=== PATIENT | male | born 1975 | race African-American/Black ===

== ENCOUNTER 2017-09-02 18:57 | Emergency (ER) | payer OTHER ==
[2017-09-02] MEDS ORDERED: HYDROmorphONE/DILAUDID 2 MG/ML INJ IVP ONE (19:01)
[2017-09-02] MEDS ORDERED: NS 1,000 ML IV ONE (19:01)
[2017-09-02] MEDS ORDERED: METOCLOPRAMIDE 10 MG/2 ML VIAL IVP ONE (19:01)
[2017-09-02] MEDS ORDERED: IOPAMIDOL (ISOVUE 370) 100 ML BTL IV ONE (19:04)
--- NOTE | 2017-09-02 19:05 | EDPHY ---
H & P Time Seen by Provider: 09/02/17 19:01 HPI/ROS: CHIEF COMPLAINT: Severe headache HISTORY OF PRESENT ILLNESS: The patient is a 42-year-old man who comes to the emergency department complaining of a severe sudden onset headache and right- sided neck pain. He felt completely well this morning and was hiking with his family. 5 min into the hike he had sudden dramatic severe pain to the right side of his head and neck. His states that he had some slurred speech and facial droop as well. That has since resolved. He denies any weakness in his extremities. He has never had headaches like this before. No fevers. No trauma. REVIEW OF SYSTEMS: Constitutional: denies: chills, fever, recent illness, recent injury EENTM: denies: blurred vision, double vision, nose congestion Respiratory: denies: cough, shortness of breath Cardiac: denies: chest pain, irregular heart rate, lightheadedness, palpitations Gastrointestinal/Abdominal: denies: abdominal pain, diarrhea, nausea, vomiting, blood streaked stools Genitourinary: denies: dysuria, frequency, hematuria, pain Musculoskeletal: denies: joint pain, muscle pain Skin: denies: lesions, rash, jaundice, bruising Neurological: See HPI Hematologic/Lymphatic: denies: blood clots, easy bleeding, easy bruising Immunologic/allergic: denies: HIV/AIDS, transplant EXAM: GENERAL: Well-appearing, well-nourished and in no acute distress. HEAD: Atraumatic, normocephalic. EYES: Pupils equal round and reactive to light, extraocular movements intact, sclera anicteric, conjunctiva are normal. ENT: TMs normal, nares patent, oropharynx clear without exudates. Moist mucous membranes. NECK: Normal range of motion, supple without lymphadenopathy or JVD. LUNGS: Breath sounds clear to auscultation bilaterally and equal. No wheezes rales or rhonchi. HEART: Regular rate and rhythm without murmurs, rubs or gallops. ABDOMEN: Soft, nontender, normoactive bowel sounds. No guarding, no rebound. No masses appreciated. BACK: No CVA tenderness, no spinal tenderness, step-offs or deformities EXTREMITIES: Normal range of motion, no pitting or edema. No clubbing or cyanosis. NEUROLOGICAL: Severe headache, no tenderness, no erythema signs of injury. Cranial nerves II through XII grossly intact. Normal speech, normal gait. 5/5 strength, normal movement in all extremities, normal sensation NIH stroke score 0. PSYCH: Normal mood, normal affect. SKIN: Warm, dry, normal turgor, no visible rashes or lesions. Source: Patient Exam Limitations: No limitations - Medical/Surgical History Hx Asthma: No Hx Chronic Respiratory Disease: No Hx Diabetes: No Hx Cardiac Disease: No Hx Renal Disease: No Hx Cirrhosis: No Hx Alcoholism: No - Family History Significant Family History: No pertinent family hx - Social History Smoking Status: Never smoked Alcohol Use: Sober Drug Use: None Constitutional: Initial Vital Signs Temperature (C) 36.5 C 09/02/17 18:57 Heart Rate 78 09/02/17 18:57 Respiratory Rate 20 09/02/17 18:57 Blood Pressure 141/96 H 09/02/17 18:57 O2 Sat (%) 95 09/02/17 18:57 O2 Delivery Mode Room Air Allergies/Adverse Reactions: No Known Allergies Allergy (Unverified 09/02/17 19:38) Home Medications: Medication Instructions Recorded NK [No Known Home Meds] 09/02/17 Medical Decision Making - Diagnostics EKG Interpretation: An EKG obtained and was read and documented in trace view. Please see trace view for full reading and report. T-wave flattening/inversion, sinus rhythm Imaging Results: Imaging Impressions Head CT 09/02/17 19:01 Impression: 1. Diffuse subarachnoid hemorrhage. 2. Mild intraventricular hemorrhage with mild prominence of the lateral ventricles. 3. Additional findings as above. Findings discussed with Dr. Asael Nuñez on 09/02/2017 at 19:19. Chest X-Ray 09/02/17 19:47 Impression: 1. Right internal jugular central venous catheter tip in good position, with no visible complication. 2. Hypoventilatory chest, with mild peribronchial thickening that could be related to fluid overload or bronchitis. Imaging: Discussed imaging studies w/ engineering recruiter Radiologist Procedures: Procedure: Ultrasound guidance: Using the linear probe covered in a sterile sheath, a short axis of the vein was obtained. The vein was completely compressible and was identified as separate from the adjacent non-compressible arterial structure. Under real-time guidance, the introducer needle was observed up to the vein, and then punctured it. These images were saved on the database. Central line placement: The indication for the procedure was potassium repletion. After verbal informed consent from patient; the risks were explained including bleeding, infection, and collapsed lung. Maximal sterile barrier technique was uses including cap, gown, sterile gloves, large sheet, hand washing and chlorhexidine prep. The area anesthetized with 1% lidocaine. The right IJ was punctured with a 19 gauge finder needle, then a wire introducer was placed, a triple-lumen was placed using Seldinger technique. There were no complications. Blood return low pressure, dark blood. The patient tolerated procedure well. CXR results: Adequate placement as interpreted by myself. Radiologist interpretation is pending. The procedure was performed by myself. ED Course/Re-evaluation: 7:[address] Martins is here and is evaluating the patient. Our ICU is full. He recommends strict blood pressure control with nicardipine also some Keppra for seizure prophylaxis and will fly him to [facility] if they except. The patient remains awake and is able to answer questions. No neurologic deficits currently. Neurosurgery does not want any narcotics given. 7:40 p.m. I discussed the case with Dr. Pearson from [facility] will accept the patient to the neuro ICU. We will transfer via helicopter. I am placing central line for potassium administration. He does have T-wave flattening on his EKG. 8:00 p.m. the patient is receiving nicardipine drip, Keppra potassium. I spoke with Dr. Cheng who accepted him to the neuro ICU at [facility]. Helicopter is here to take him. He suggested to wait to do angio there. Differential Diagnosis: Partial list of the Differential diagnosis considered include but were not limited to; subarachnoid hemorrhage, migraine and although unlikely based on the history and physical exam, I also considered tumor, meningitis, trauma. Critical Care Time: Critical care time spent by me, Dr. Nuñez exclusive with this patient was 45 minutes, exclusive of the PA time exclusive of procedures. The organ system that was at risk was urologic and I gave diagnosis, consultation and transfer to prevent worsening of the patient's condition - Data Points Laboratory Results: Laboratory Results 09/02/17 18:58 09/02/17 18:58 09/02/17 09/02/17 09/02/17 20:01 19:08 18:58 WBC RBC Hgb POC Hgb 16.7 gm/dL gm/dL (13.7-17.5) Hct POC Hct 49 % % (40-51) MCV MCH MCHC RDW Plt Count MPV Neut % (Auto) Lymph % (Auto) [place] % (Auto) Eos % (Auto) Baso % (Auto) Nucleat RBC Rel Count Absolute Neuts (auto) Absolute Lymphs (auto) Absolute Monos (auto) Absolute Eos (auto) Absolute Basos (auto) Absolute Nucleated RBC Immature Gran % Immature Gran # PT 14.6 SEC SEC (12.0-15.0) INR 1.12 (0.83-1.16) POC Sodium 143 mEq/L mEq/L (135-145) Sodium 142 mEq/L mEq/L (135-145) POC Potassium 2.4 mEq/L L* mEq/L (3.3-5.0) Potassium 2.8 mEq/L L mEq/L (3.5-5.2) POC Chloride 104 mEq/L mEq/L (97-110) Chloride 105 mEq/L mEq/L (97-110) Carbon Dioxide 19 mEq/l L mEq/l (22-31) Anion Gap 18 mEq/L H mEq/L (8-16) POC BUN 14 mg/dL mg/dL (7-23) BUN 13 mg/dL mg/dL (7-23) Creatinine 0.9 mg/dL mg/dL (0.7-1.3) POC Creatinine 0.9 mg/dL mg/dL (0.7-1.3) Estimated GFR > 60 Glucose 122 mg/dL H mg/dL (70-100) POC Glucose 132 mg/dL H mg/dL (70-100) Calcium 9.2 mg/dL mg/dL (8.5-10.4) 09/02/17 18:58 WBC 10.09 10^3/uL H 10^3/uL (3.80-9.50) RBC 6.05 10^6/uL 10^6/uL (4.40-6.38) Hgb 16.0 g/dL g/dL (13.7-17.5) POC Hgb Hct 47.7 % % (40.0-51.0) POC Hct MCV 78.8 fL L fL (81.5-99.8) MCH 26.4 pg L pg (27.9-34.1) MCHC 33.5 g/dL g/dL (32.4-36.7) RDW 12.6 % % (11.5-15.2) Plt Count 233 10^3/uL 10^3/uL (150-400) MPV 9.1 fL fL (8.7-11.7) Neut % (Auto) 30.5 % L % (39.3-74.2) Lymph % (Auto) 55.2 % H % (15.0-45.0) [place] % (Auto) 10.3 % % (4.5-13.0) Eos % (Auto) 1.4 % % (0.6-7.6) Baso % (Auto) 0.4 % % (0.3-1.7) Nucleat RBC Rel Count 0.0 % % (0.0-0.2) Absolute Neuts (auto) 3.08 10^3/uL 10^3/uL (1.70-6.50) Absolute Lymphs (auto) 5.57 10^3/uL H 10^3/uL (1.00-3.00) Absolute Monos (auto) 1.04 10^3/uL H 10^3/uL (0.30-0.80) Absolute Eos (auto) 0.14 10^3/uL 10^3/uL (0.03-0.40) Absolute Basos (auto) 0.04 10^3/uL 10^3/uL (0.02-0.10) Absolute Nucleated RBC 0.00 10^3/uL 10^3/uL (0-0.01) Immature Gran % 2.2 % H % (0.0-1.1) Immature Gran # 0.22 10^3/uL H 10^3/uL (0.00-0.10) PT INR POC Sodium Sodium POC Potassium Potassium POC Chloride Chloride Carbon Dioxide Anion Gap POC BUN BUN Creatinine POC Creatinine Estimated GFR Glucose POC Glucose Calcium Medications Given: Discontinued Medications Hydromorphone HCl (Dilaudid) 0.5 mg IVP EDNOW ONE Stop: 09/02/17 19:02 Last Admin: 09/02/17 19:26 Dose: 0.5 mg Sodium Chloride (Ns) 1,000 mls @ 0 mls/hr IV ONCE ONE; Wide Open PRN Reason: Protocol Stop: 09/02/17 19:02 Last Admin: 09/02/17 19:43 Dose: 1,000 mls Levetiracetam (Keppra (Premix)) 100 mls @ 400 mls/hr IV EDNOW ONE Stop: 09/02/17 19:47 Last Admin: 09/02/17 20:01 Dose: 100 mls Nicardipine/Sodium Chloride (Cardene 0.1 Mg/Ml (Premix)) 200 mls @ 0 mls/hr IV CONT HERBIE; Titrate PRN Reason: Protocol Stop: 03/01/18 19:59 Last Admin: 09/02/17 19:37 Dose: 200 mls Potassium Chloride (Potassium Cl 10 Meq (Premix)) 100 mls @ 100 mls/hr IV EDNOW ONE Stop: 09/02/17 21:01 Last Admin: 09/02/17 20:09 Dose: 100 mls Metoclopramide HCl (Reglan Injection) 10 mg IVP EDNOW ONE Stop: 09/02/17 19:02 Last Admin: 09/02/17 19:25 Dose: 10 mg Point of Care Test Results: 09/02/17 19:08 POC Sodium 143 POC Potassium 2.4 L* POC Chloride 104 POC BUN 14 POC Creatinine 0.9 POC Glucose 132 H Departure - Departure Disposition: Acute Care Hospital [facility] Clinical Impression: Subarachnoid hemorrhage Condition: Critical Referrals: Patient,NotPresent [Unknown] - As per Instructions
[2017-09-02] MEDS ORDERED: ONDANSETRON 4 MG/2 ML VIAL ONE (19:14)
[2017-09-02 19:19] LABS: PLATELET COUNT 233 10^3/uL (150-400)
--- NOTE | 2017-09-02 19:31 | CPEKG ---
Heart Rate: 72 RR Interval: 833 P-R Interval: 188 QRSD Interval: 96 QT Interval: 396 QTC Interval: 434 P [place]: 55 QRS [place]: 17 T Wave [place]: 29 EKG Severity - BORDERLINE ECG - EKG Impression: SINUS RHYTHM EKG Impression: BORDERLINE T ABNORMALITIES, ANTERIOR LEADS EKG Impression: T-wave flattening/inversion Electronically Signed By: Asael Nuñez 02-Sep-2017 20:04:26
[2017-09-02] MEDS ORDERED: levETIRAcetam 1000MG/NACL 100 ML IV ONE (19:33)
--- NOTE | 2017-09-02 19:45 | PDCONSULT ---
Art Supervisor Note: [place] Tele[facility] Note Demographics Consult Type: Phone Only First Name: Mamta Last Name: Nicholas Date of : 1975 Age: 42 Gender: Male Referring Provider: Dr Cloud Time of initial page ([place] Time): 09/02/2017 19:36 Time of return call ([place] Time): 09/02/2017 19:38 Time Ready to Initiate Telemed Consult ([place] Time): 09/02/2017 19:38 HPI Additional History (Free Text): 42 year old man with sudden onset of severe headache while hiking with family. Then it's [facility] and CT scanning shows subarachnoid hemorrhage. He is without focal deficits but severe headache persists. Data Head CT: hemorrhage, SAH Plan Target Blood Pressure: SBP < 140 Medication: Keppra 1000 mg BID Disposition: transfer to [facility], Dr Capps accepting to Neuro CCU. CTA can be perfromed upon arrival to [facility]. Logistics Provider Location: [place] Patient Location: [facility]
[2017-09-02] MEDS ORDERED: POTASSIUM Cl (KCl) 10 MEQ/100 ML BAG IV ONE (19:56)
[2017-09-02] MEDS ORDERED: niCARdipine/NACL 200 ML IV SCH (20:00)
[2017-09-02] MEDS ORDERED: POTASSIUM Cl (KCl) 100 ML IV ONE (20:02)
[2017-09-02 20:16] LABS: INR 1.12 (0.83-1.16); PROTIME(PATIENT) 14.6 SEC (12.0-15.0)
[2017-09-02 20:59] VITALS: BP 142/81
--- NOTE | 2017-09-02 20:59 | GCON ---
[f rep st] CONSULTATION DATE OF CONSULTATION: 09/02/2017 REFERRING PHYSICIAN: Dr. Nuñez, Emergency Medicine REASON FOR CONSULT: Subarachnoid hemorrhage, presumed aneurysmal. HISTORY OF PRESENT ILLNESS: The patient is a 42-year-old male who was hiking with this family today and then had severe, acute, sudden onset thunderclap headache and right-sided neck pain. He was fine this morning. His and his family were with him, and they report that he had some slurred speec h and a facial droop as well that has since resolved. He has never had headaches like this before. He was brought to the [facility] emergency room, where I saw him with Dr. Nuñez pre sent and was able to evaluate him with his family at the bedside. He is arousable and will give some history and follow commands. His head CT showed aneurysmal subarachnoid hemorrhage with hemorrhage in the basilar cisterns, asymmetric to the left side, possibly revealing a ruptured left PCOM artery. Unfortunately, there are no vacant ICU beds here at [facility], and the patient has to be transferred to [facility] by air transport for definitive care. PAST MEDICAL AND SURGICAL HISTORY: Per HPI, otherwise negative. ALLERGIES: None. CODE STATUS: Full. HOME MEDICATIONS: None. FAMILY HISTORY: No significant history of subarachnoid hemorrhage, brain hemorrhage, or sudden . SOCIAL HISTORY: Not a smoker. Does not use alcohol or drugs. He is and has a brother and s ister and a mother who are all present today as well. REVIEW OF SYSTEMS: Otherwise negative. 10 points were reviewed. VITAL SIGNS: Blood pressure 141/96, heart rate 78, respiratory rate 20, saturating 95% on room air. Afebrile at 36.5 degrees Celsius. NEUROLOGIC EXAMINATION: The patient has his eyes closed but opens them easily to voice and also spon taneously. He has fluent speech and is complaining of a headache. He has normal cranial nerves. He has symmetric motor with 5/5 strength in all extremities, a normal sensory exam, and a normal reflex exam. Gait is deferred. LABORATORIES: White blood cell count 10.09, hemoglobin 16, platelet count 233. INR 1.12. Sodium 14 2, potassium 2.8, BUN 13, creatinine 0.9, glucose 122, calcium 9.2. REVIEW OF IMAGING: I have reviewed the patient's noncontrasted head CT and agree with an aneurysmal pattern of subarachnoid hemorrhage with significant hemorrhage in the basilar cisterns, asymmetric to the left, along with [place], indicating a possible left PCOM rupture. He has also rupture d a small amount of blood into his ventricular system. He does not have hydrocephalus. IMPRESSION AND PLAN: 42-year-old otherwise healthy male who was hiking with his family today and had severe, acute onset thunderclap headache, concerning for subarachnoid hemorrhage. He arrived at the [facility] emergency department, where I saw him personally and reviewed his head CT and agree that he has a pattern consistent with aneurysmal subarachnoid hemorrhage with a possible l eft posterior communicating artery rupture. Due to the fact that we do not have any beds in our inte nsive care unit, the patient is going to be transferred to [facility]. I saw his family, griffin tena, with Dr. Nuñez of emergency medicine, and we counseled his family. They are grateful for th e care he has received and understanding that he has to be transferred for definitive care. We do herrera ve the capabilities to care for him here, but unfortunately, we do not have any vacant beds. Thank you for this consult. /[id number]/MODL
== END 2017-09-02 20:35 | disposition short-term general hospital (02) ==
LOC: EDUNIT#
DX: I60.9 Nontraumatic subarachnoid hemorrhage, unspecified (principal); E86.9 Volume depletion, unspecified
CPT/HCPCS: 82947-QW; 96365; J1170; J1953; J2405; J2765; J3480; Q9967